=== PATIENT | male | born 1970 | race Caucasian/White ===

== ENCOUNTER 2023-09-14 09:56 | Day surgery (SDC) | payer OTHER, SELFPAY ==
--- NOTE | 2023-09-13 08:17 | EKG12_ITS ---
Test Reason : PRE OP Blood Pressure : / mmHG Vent. Rate : 075 BPM Atrial Rate : 075 BPM P-R Int : 130 ms QRS Dur : 080 ms QT Int : 384 ms P-R-T Axes : 034 -23 014 degrees QTc Int : 428 ms Normal sinus rhythm Normal ECG Confirmed by GEORGE STERN, SHANA ([id number]), assignment desk editor MARK BELTRÁN ([id number]) on 09/20/2023 7:28:38 AM Referred By: Zayda Willard Confirmed By:KEVIN VAZQUEZ MD
[2023-09-14 10:10] VITALS: BP 140/95; PULSE 77; RESP 16; TEMP 35.9; O2SAT 99; BMI 28.4
--- NOTE | 2023-09-14 10:13 | HP.PCM.SX_ITS ---
HPI - General General Date of Service: 09/14/23 HPI Narrative JAUN TRISTAN, is a 53 M who presents for umbilical hernia repair with mesh. Patient has been having minimal pain associated with the hernia. [facility] Medical History Alcohol use Non-smoker Home Medications cetirizine 10 mg capsule (Zyrtec) 10 mg PO DAILY PRN allergy symptoms 04/19/23 [History Last Taken Unknown] Allergy/AdvReac Type Severity Reaction Status Date / Time No Known Allergies Allergy Verified 09/14/23 10:09 Family History (Updated 04/19/23 @ 14:44 by Sol Saunders) Father Heart disease Social History (Updated 04/19/23 @ 14:45 by Sol Saunders) Smoking Status: Never smoker alcohol intake: current substance use type: does not use Physical Exam Const oriented x3 Resp normal respiratory effort Cardio regular rate GI soft to palpation GI Narrative: Umbilical hernia?reducible about 1.2 cm, minimal discomfort with reducing Inspection: Negative for abdominal distention Assessment & Plan Assessment/Plan (1) Umbilical hernia: PLAN: Plan Plan for umbilical hernia repair with mesh. Discussed procedure including to risk bleeding, infection, recurrence, and anesthesia. Patient had no further question this time. Zayda Willard M.D. Pager: [phone] [facility] [address] [place] [address], [facility], [address] [place] [address] Office: [phone]
[2023-09-14] MEDS: Lactated Ringers 1,000 ML 15 ML IV (10:16)
[2023-09-14] MEDS: Cefazolin 2 GM in 0.9% Normal Saline (100mL Bag) 100 ML IV (11:06)
--- NOTE | 2023-09-14 11:45 | PCM.OPRPT ---
Report of Operation Date of Procedure: 09/14/23 Pre-Operative Diagnosis: umbilical hernia Post-Operative Diagnosis: Same Surgery/Procedure Performed:: Umbilical hernia pair with mesh Surgeon: Zayda Willard foreign exchange services manager: Jason Nina Type of Anesthesia: General/Supplemental Anesthesiologist: Matty Baxter Special Medications: Ancef 2 g IV x1 Specimen's removed: None Estimated Blood Loss (mL): < 5 cc Description of Procedure: Patient was brought into the room placed supine on the operating table. Correct patient, procedure, site, positioning, special, was verified prior to procedure. General anesthesia was induced. The abdomen was prepped draped in usual sterile fashion. A curvilinear incision was made below the umbilicus with a 15 blade scalpel. This was deepened with electrocautery. A hemostat was used to go around the stalk of the umbilicus and Metzenbaum scissors was used to carefully divide the hernia sac from the skin of the umbilicus. The fascia around the hernia defect was cleared and the hernia defect measured 1.5 x 1.5 cm. A small Ventralex ST hernia patch was used and secured laterally at the tails with 0 Prolene mattress sutures. 0 Prolene suture was placed to close the fascia in a [id number] including the mesh inferiorly and superiorly. The wound was irrigated with saline. Hemostasis was assured. The skin of the umbilicus was secured to the fascia using 3-0 Vicryl suture interrupted. The incision was closed with 3-0 Vicryl subdermal interrupted sutures and the skin was closed with interrupted 4-0 Monocryl sutures. Steri-Strips and Tegaderm and OpSite were placed over the incision once sterile cotton balls were placed in the umbilicus. Patient was extubated. Patient tolerated procedure well and was taken to the postanesthesia care unit in stable condition. Grafts/Implants Used: Ventralex ST hernia patch-small REF [id number] LOT [id number] Complications none
--- NOTE | 2023-09-14 11:48 | DCINST_ITS ---
Discharge Instructions Diet Discharge Diet: Light diet - advance as tolerated Activity May shower in (days): 5 (Keep umbilical dressing clean dry and intact for 5 days. Okay to tape off with a Ziploc bag to shower. Or lower shower and upper sponge bath.) Lifting Restrictions: no lifting >20 lbs x 2 wks, no strenuous exercise for 4 wks Additional Activity Instructions:: - Dressing / Incision Call your doctor if your incision/area has: Continuous Slow Oozing, Sudden Increased Bleeding, Increased Pain/ Swelling, Increased Redness, Foul Smelling Discharge and Swelling at the incision site Call your doctor if you observe: Fever of 101 or Higher Remove Dressing in: 5 days (After 5 days okay to remove surgical dressing. Place cotton ball or rolled up gauze in bellybutton and retape daily for 2 more days.) Cleanse incision/area with: Do not get Incision Wet (for 5 days) Additional Dressing/Incision Instructions:: Steri-Strips will fall off in 7 to 10 days, if they do not fall off okay to remove after 10 days. Follow Up Care Please Follow Up With: Zayda Willard MD When: Call the office for a follow-up appointment 2 weeks; after 5 PM and on the weekends call [phone] with any concerns. Test Results: Test results from this visit will be discussed in further detail at your follow- up appointment, if applicable. Discharge Plan Admission Attending Provider: Zayda Willard Primary Care Provider: Mark Seo Instructions Additional Instructions / Restrictions: Okay to take ibuprofen 400-600 mg PO q6hr PRN along with the hydrocodone/acetaminophen. Avoid Tylenol since there is already Tylenol in the hydrocodone/acetaminophen. Take all pain meds with food. Hydrocodone/acetaminophen can cause constipation recommend taking daily stool softener (i.e. Colace/docusate) while taking the pain meds. Recommend starting some MiraLAX in 1 to 2 days if no bowel movement-- okay to take more than 1 dose in a day. If still no bowel movement the following day recommend taking magnesium citrate half the bottle and waiting 4-6 hours if still no results take the other half the bottle. Discharge Orders/Prescriptions Prescriptions: New hydrocodone-acetaminophen 5-325 mg tablet 1 tab PO Q6H PRN (Reason: pain) 3 Days Qty: 7 0RF Continued Zyrtec 10 mg capsule 10 mg PO DAILY PRN (Reason: allergy symptoms) Other Ambulatory Orders: 12 Lead EKG (Routine) Timeframe: [id number] Location: None Selected Ordered By: Dr. Uriah France Referrals / Follow Up: Mark Seo MD [Primary Care Provider] - Disposition Disposition (needs filled in before D/C Order can be placed): Home, Self Care
[2023-09-14] MEDS: Bupivacaine Mpf 0.5% 30 ML VIAL (11:50)
[2023-09-14 12:05] VITALS: BP 126/83; BP 140/95; PULSE 64; RESP 16; TEMP 36.7; O2SAT 94
[2023-09-14 12:15] VITALS: BP 117/65; BP 140/95; PULSE 68; RESP 18; O2SAT 96
[2023-09-14 12:25] VITALS: BP 108/72; BP 140/95; PULSE 72; RESP 16; TEMP 36.2; O2SAT 94
[2023-09-14 13:45] VITALS: BP 140/95
[2023-09-14 13:50] VITALS: BP 106/77; BP 140/95; PULSE 77; RESP 16; TEMP 36.6; O2SAT 97
== END 2023-09-14 14:14 | disposition home or self-care (01) ==
LOC: SDC 09:56 → AC 09:57
PROVIDERS: PCP Family Medicine; Referring Provider Surgery; Visit Provider Surgery
PROC: (CPT 49593; principal; 2023-09-14 11:20)
DX: K42.9 Umbilical hernia without obstruction or gangrene (principal)
CPT/HCPCS: 49593; 00830; 93005; J7120; C1781; J2405